=== PATIENT | male | born 1985 | race Hispanic/Latino ===

== ENCOUNTER 2021-06-14 10:42 | Emergency (ER) | payer OTHER ==
[~2021-06-14] VITALS: Ht 175.3 cm; Wt 97.2 kg
[2021-06-14] MEDS ORDERED: ACET32TAB PO (10:50)
[2021-06-14 12:41] VITALS: BP 140/80
== END 2021-06-14 12:44 | disposition home or self-care (01) ==
LOC: M ED 10:42
DX: S62.002A Unspecified fracture of navicular [scaphoid] bone of left wrist, initial encounter for closed fracture (principal); X58.XXXA Exposure to other specified factors, initial encounter; Y92.138 Other place on military base as the place of occurrence of the external cause; Y99.1 Military activity; Z88.0 Allergy status to penicillin

== ENCOUNTER 2021-12-11 21:56 | Emergency (ER) | payer OTHER ==
[~2021-12-11] VITALS: Ht 175.3 cm; Wt 99.3 kg
[~2021-12-11 21:56] MED LIST: ACET32TAB PO
[2021-12-12 03:38] VITALS: BP 146/87
== END 2021-12-12 04:37 | disposition left against medical advice (07) ==
LOC: M ED 21:56
DX: Z53.21 Procedure and treatment not carried out due to patient leaving prior to being seen by health care provider (principal)